=== PATIENT | female | born 1985 | race Caucasian/White ===

== ENCOUNTER 2025-09-07 09:30 | Emergency (ER) | payer OTHER, SELFPAY ==
[2025-09-07 09:30] VITALS: BP 135/70; PULSE 93; RESP 18; TEMP 36.6; O2SAT 100; BMI 32.8
--- NOTE | 2025-09-07 09:35 | EKG12_ITS ---
Test Reason : CHEST PAIN Blood Pressure : */* mmHG Vent. Rate : 96 BPM Atrial Rate : 96 BPM P-R Int : 112 ms QRS Dur : 82 ms QT Int : 376 ms P-R-T Axes : 40 71 66 degrees QTcB Int : 475 ms Normal sinus rhythm with sinus arrhythmia Normal ECG Confirmed by CHELA SHAH, FLAVIO ([id number]), editor map GIULIANO THOMASON ([id number]) on 09/08/2025 9:14:27 AM Referred By: Confirmed By: FLAVIO YORK MD
--- NOTE | 2025-09-07 09:39 | EDS_ITS ---
HPI History of Present Illness Chief Complaint: Chest Pain Informant: patient Onset/Context/Timing Onset: Weeks Activity at onset: gradual Timing: Intermittent Quality: Positive for Pain Location: Substernal Current Severity: Mild Maximum Severity: Mild Worsened By: Nothing Relieved By: Nothing Associated Symptoms: Negative for Nausea, Vomiting, Diaphoresis, Dyspnea, Cough, Fever, Lightheadedness, Acid Reflux or Palpitations Narrative Narrative: 39-year-old female no CeeNU past medical history. Currently on no medications. States that she has had intermittent chest discomfort and today she felt shaky. She has had intermittent weeks where she will get some tightness in her chest. Not associated with exertion. No shortness of breath. No diaphoresis or nausea. No history of DVT or PE. No recent travel surgery immobilization. She does not believe she is she has had her last menstrual period in the last month. She is on no control or hormone replacement pills. She has had no calf pain or hemoptysis. No pleuritic pain. There is no family history of cardiac disease at a young age or clotting problems. Prior Similar Symptoms: Yes Recent Illness/Hospitalization: No CVD Risk Factors: Negative for Hypertension, Diabetes, Hypercholesterolemia, Family History 1' </=55 or Smoking PE Risk Factors: Negative for Recent Travel/Surgery, Recent Immobilization, Prior DVT or PE, Cancer or OCP + Smoking + >/=35 TAD Risk Factors: Negative for Marfan's Syndrome PFSH PFSH Medical History no medical history no medical history Allergy/AdvReac Type Severity Reaction Status Date / Time No Known Allergies Allergy Verified 09/07/25 09:32 Social History Smoking Status: Never smoker ROS ROS ED ROS Narrative Atypical nonexertional chest discomfort the last couple weeks. Constitutional Constitutional ED: Denies chills or fever(s) Eyes Eyes: Reports none ENT ENT ED: Denies ear pain Cardiovascular Cardiovascular: Reports chest pain and palpitations Respiratory/Chest Respiratory/Chest: Denies cough or dyspnea Gastrointestinal Gastrointestinal: Denies abdominal pain, constipation, diarrhea, melena, nausea or vomiting Genitourinary Genitourinary ED: Denies dysuria or hematuria Musculoskeletal Musculoskeletal: Denies arthralgias Integumentary Denies abscess Neurologic Neurologic: Denies headache(s) Psychiatric Psychiatric: Denies depression Endocrine Endocrinology: Denies cold intolerance Hematologic/Lymphatic Hematologic/Lymphatic: Denies easy bleeding, easy bruising or lymphadenopathy Allergic/Immunologic Allergic/Immunologic ED: Denies mouth swelling, tongue swelling or urticaria EXAM Physical Exam Narrative Exam Narrative: Well-appearing 39-year-old female vital signs are stable afebrile. Pulse ox 100% on room air no hypoxia. H EENT exam pupils round react light. Moist pink pharynx. Neck nontender no JVD. No lymphadenopathy. Back nontender. Lungs clear to auscultation bilaterally. Heart regular rhythm no murmur. Chest wall and ribs nontender. Abdomen soft nontender. Normal bowel sounds without peritoneal signs. Moving all 4 extremities. Calves are nontender without edema or cords. 5 out of 5 fairing man strength. Dorsi plantarflexion intact. Equal symmetrical radial pulses. Const Vital Signs: 09/07/25 09:30 09/07/25 09:33 09/07/25 09:35 Temperature 97.9 F Temperature Source Oral Pulse Rate 93 Respiratory Rate 18 Respiratory Effort Normal Blood Pressure 135/70 H Blood Pressure Mean 91 Pulse Ox 100 Oxygen Delivery Method Room Air Room Air 09/07/25 10:15 09/07/25 11:00 09/07/25 12:00 Temperature Temperature Source Pulse Rate 75 75 86 Respiratory Rate 19 H 14 Respiratory Effort Blood Pressure 103/66 102/72 104/71 Blood Pressure Mean 78 82 82 Pulse Ox 100 98 100 Oxygen Delivery Method Room Air Room Air 09/07/25 13:00 Temperature Temperature Source Pulse Rate 87 Respiratory Rate 11 L Respiratory Effort Blood Pressure 100/66 Blood Pressure Mean 77 Pulse Ox 100 Oxygen Delivery Method Room Air Heart Score History: Slightly/Non-Suspicious ECG: Normal Age: </= 45 years Risk Factors: No Risk Factors Troponin: </= Normal Limit Score: 0 MDM MDM MDM Narrative Medical decision making narrative: 39-year-old female atypical chest discomfort. Clinically unlikely to be cardiac. Not exertional. No dyspnea. She will undergo cardiac workup. Does not sound like a PE. She has no PE risk factors or family history of clotting problems. She has had no recent travel, surgery or immobilization. No hemoptysis. Pain is not pleuritic. She has no calf pain or swelling at all think she needs a D-dimer. She undergo cardiac workup with chest x-ray and EKG we will go from there. She did bring up that she this may be anxiety. Patient is feeling mildly anxious right now she and I discussed on a trial dose of p.o. Ativan. Repeat exam patient is doing well at around 11 AM. Repeat exam unchanged unremarkable stable vital signs. Normal pulse ox. Awaiting a 2-hour troponin. On average test results with both her and family. Her current exam is benign. Repeat exam patient is doing well at about 2 PM. We went over her test results including her CTA I do not have a specific cause for her chest discomfort. I do not think is cardiac. I am comfortable with her being discharged home with outpatient follow-up. This may be secondary to anxiety. History & Record Review Discussion w/independent historian: Patient and Family Additional record(s) reviewed:: No prior records Lab Data Attestation: I reviewed the patient's lab results. Lab results narrative: CBC is unremarkable white count 8 H&H 14 and 41. Platelets 288. Electrolytes show a gap of 12. Normal BUN and creatinine. Glucose 131. Initial troponin 7. 2-hour troponin is less than 6. Chest x-ray is unremarkable. D-dimer is elevated 0.[address] of the chest is being obtained. CTA chest showed no blood clot or acute abnormality. Labs: Laboratory Results - last 24 hr 09/07/25 09/07/25 09:40 11:34 WBC 8.2 RBC 4.82 Hgb 14.3 Hct 41.9 MCV 86.9 MCH 29.7 MCHC 34.1 RDW Std Deviation 40.3 RDW Coeff of Goran 12.5 Plt Count 288 MPV 9.2 Immature Gran % (Auto) 0.100 Neut % (Auto) 63.8 Lymph % (Auto) 27.7 Lake % (Auto) 6.6 Eos % (Auto) 1.3 Baso % (Auto) 0.5 Absolute Neuts (auto) 5.2 Absolute Lymphs (auto) 2.26 Nucleated RBC % 0 D-Dimer Quant (PE/DVT) 0.58 H* Sodium 137 Potassium 3.3 Chloride 102 Carbon Dioxide 22.7 Anion Gap 12 BUN 9 Creatinine 0.79 Estim Creat Clear Calc 88.07 Est GFR (MDRD) Non-Af 98 BUN/Creatinine Ratio 11.6 Glucose 131 H Calcium 9.2 Troponin T High Sens 7 Troponin T Hi Sens 2 Hr < 6 Radiography Chest X-Ray - ED: 2 View, Read by ED Physician, Read by Radiologist, Normal, Heart, Lungs, Mediastinum, Bony Structures and No Acute Disease Diagnostic Testing: Clinical Impression(s) from Imaging Studies Chest X-Ray 09/07/25 10:22 IMPRESSION: No acute cardiopulmonary pathology. Reading [facility] Chest CTA 09/07/25 11:32 IMPRESSION: No evidence of pulmonary embolism. No acute chest abnormalities. Reading Location: [facility] Chest x-ray, 2 views, AP lateral, interpreted by myself and radiologist shows no acute abnormality. Normal cardiac silhouette. Normal lung miranda. Normal mediastinum. Rhythm Strip Rhythm Strip: Sinus Rhythm Rate: 96 Ectopy: None EKG Initial EKG: Attestation: I personally reviewed and interpreted this EKG as follows: Interpretation: Sinus Rhythm and No Acute Injury Pattern Comments: Normal sinus rhythm rate of 96 no acute signs of NM or ischemia. Discharge Plan Triage Chief Complaint: Chest Pain ED Provider: Raymundo Severino Dx/Rx/DC Orders Clinical Impression: Chest pain, Anxiety Instructions: ED Chest Pain, Uncertain Cause Primary Care Provider: Care Physician,No Primary Referrals: Jak Riley MD [[facility]] - 3-5 Days if not improving Activity Restrictions/Additional Instructions: Your tests, chest x-ray, CAT scan and EKG all look good. The blood work looks good. Follow-up with local primary care physician. This may be secondary to anxiety. Print Language: Eritrean Disposition Disposition: Home, Self Care
[2025-09-07 09:54] LABS: Hematocrit 41.9 % (37-47); Hemoglobin 14.3 g/dL (12.0-15.0); Immature Granulocytes Count 0.010 X10^3/uL (0.0-0.0); Mean Corp Hgb Conc 34.1 g/dL (32-36); Mean Corpuscular Volume 86.9 fL (81-99); Mean Platelet Vol. 9.2 fl (6.2-12.0); NRBC Flagged by Analyzer 0 % (0-5); Platelet Count 288 K/mm3 (150-450); RBC Distribution Width CV 12.5 % (11.6-14.6); RBC Distribution Width SD 40.3 fl (35.1-43.9); Red Blood Count 4.82 M/mm3 (4.2-5.4); White Blood Count 8.2 K/mm3 (4.4-11.0)
[2025-09-07 10:15] VITALS: BP 103/66; PULSE 75; RESP 19; O2SAT 100
[2025-09-07 10:17] LABS: Anion Gap 12 (5-15); BUN 9 mg/dL (4-19); BUN/Creat Ratio 11.6 RATIO (10-20); Calcium,Total 9.2 mg/dL (7.6-11.0); Carbon Dioxide 22.7 mmol/L (21.0-32.0); Chloride 102 mmol/L (98-108); Estimated Creatinine Clearance 88.07 ml/min (50-250); Glucose 131 mg/dL (70-99); Potassium 3.3 mmol/L (3.3-5.1); Troponin T High Sensitivity 7 ng/L (<=14)
--- NOTE | 2025-09-07 10:22 | RAD_ITS ---
PROCEDURE: CHEST PA AND LATERAL 09/07/2025 REASON FOR EXAM: CHEST PAIN TECHNIQUE: Procedure Code: RADCXR Modality: DX Procedure: CHEST PA AND LATERAL COMPARISON: None available. FINDINGS: No focal lung consolidation, pneumothorax, or pleural effusion. The cardiomediastinal silhouette is within normal limits. The jacobo and mediastinum are within normal limits. The osseous structures are unremarkable. RAD/Chest PA and Lateral IMPRESSION: No acute cardiopulmonary pathology. Reading Location: [id number]
[2025-09-07 11:00] VITALS: BP 102/72; PULSE 75; RESP 14; O2SAT 98
[2025-09-07 11:32] LABS: D-Dimer Quantitative (DVT/PE) 0.58 FEU/ug/m (0.27-0.49)
--- NOTE | 2025-09-07 11:32 | CT_ITS ---
PROCEDURE: CTA CHEST W/WO CONTRAST 09/07/2025 REASON FOR EXAM: ATYPICAL CHEST PAIN. ELEVATED D-DIMER TECHNIQUE: Procedure Code: CTCTACHWW Modality: CT Procedure: CTA CHEST W/WO CONTRAST Multiplanar Sagittal and Coronal images were obtained. CONTRAST: Isovue 370 VOLUME: 70 mL One or more dose reduction techniques were used (e.g., Automated exposure control, adjustment of the mA and/or kV according to patient size, use of iterative reconstruction technique). RADIATION DOSE SUMMARY: CTDlvol: 8.81 mGy DLP: 332.97 mGycm COMPARISON: None. # of known CTs in the past 12 months: 0 # of known Cardiac Nuclear Medicine Studies in the past 12 months: 0 FINDINGS: Thoracic Aorta: No aortic aneurysm. Heart: No cardiomegaly. No atherosclerotic calcifications of the coronary arteries. Pulmonary Vessels: No pulmonary embolism Hardware: None. Lymph nodes: No lymphadenopathy. Lungs and Airways: Clear. Pleura: No pleural effusion or pneumothorax Upper Abdomen: Unremarkable. Bones: No acute bony abnormalities. CT/CTA Chest W/WO Contrast IMPRESSION: No evidence of pulmonary embolism. No acute chest abnormalities. Reading Location: [facility]
[2025-09-07 12:00] VITALS: BP 104/71; PULSE 86; O2SAT 100
[2025-09-07 12:43] LABS: Troponin T High Sens 2 HR < 6 ng/L (<=14)
[2025-09-07 13:00] VITALS: BP 100/66; PULSE 87; RESP 11; O2SAT 100
[2025-09-07 14:08] VITALS: BP 99/62; PULSE 85; RESP 11; TEMP 36.6; O2SAT 100
--- NOTE | 2025-09-07 15:33 | CM.ED ---
Social Work Reason for visit: No PCP Patient confirmed that she does not currently have a PCP but that she is interested in finding a provider. [facility] provider list given to patient. No further needs identified at this time. Marylin Menendez, INDUSTRIAL METHODS CONSULTANT, [employer]
== END 2025-09-07 14:10 | disposition home or self-care (01) ==
LOC: ED 10:03
PROVIDERS: Emergency Provider Emergency Medicine; Visit Provider Emergency Medicine
DX: R07.9 Chest pain, unspecified (principal); F41.9 Anxiety disorder, unspecified
CPT/HCPCS: 71046; 71275; 80048; 84484; 85025; 85379; 93005; 99284; Q9967; A4216